=== PATIENT | male | born 1950 | race Caucasian/White ===

== ENCOUNTER 2020-10-19 14:55 | Emergency (ER) | payer MEDICARE, MEDICAID ==
[~2020-10-19] VITALS: Ht 182.9 cm; Wt 80.0 kg
--- NOTE | 2020-10-19 15:08 | NUR ---
BIB EMS FROM [facility] S/P [facility] AFTER TRIPPING ON [facility]. PT HIT HEAD, NO LOC, NO BLOOD THINNERS. GHASSAN MAURER AT BEDSIDE FOR EVALUATION. PT ATTACHED TO MONITORS. MARTI COUGHLIN.
[2020-10-19] MEDS ORDERED: LIDOCAINE-MPF 1%, 5ML ONE (15:17)
[2020-10-19] MEDS ORDERED: DIPH,PERTUSS(ACELL),TET VAC/PF 0.5 ML IM-VACC ONE ×2 (15:19→15:30)
[2020-10-19] MEDS ORDERED: LIDOCAINE-MPF 1%, 5ML INFIL ONE (15:30)
--- NOTE | 2020-10-19 16:04 | NUR ---
EMT AT BEDSIDE CLEANSING WOUND.
--- NOTE | 2020-10-19 16:12 | NUR ---
PT TO CT VIA LOBO
--- NOTE | 2020-10-19 16:38 | NUR ---
PT BACK FROM CT, ASLEEP, VSS, NADN
[2020-10-19 17:33] VITALS: BP 103/56
[2020-10-19] MEDS ORDERED: NEOSPORIN OINT. PKT 1 PACKET ONE (17:47)
--- NOTE | 2020-10-19 17:58 | NUR ---
WOUND CLEANSED, NEOSPRIN APPLIED, WOUND COVERED
--- NOTE | 2020-10-19 18:07 | NUR ---
Patient/Caregiver given discharge instructions and they have confirmed that they understand the instructions. Patient ambulatory with steady gait.
== END 2020-10-19 18:08 | disposition home or self-care (01) ==
LOC: ED 18:00
DX: S01.21XA Laceration without foreign body of nose, initial encounter (principal); W01.0XXA Fall on same level from slipping, tripping and stumbling without subsequent striking against object, initial encounter; Y93.89 Activity, other specified; Y92.89 Other specified places as the place of occurrence of the external cause; Y99.8 Other external cause status
CPT/HCPCS: 12011; 70450; 70486; 72125; 90471; 90715; 99285